=== PATIENT | female | born 1950 | race Caucasian/White ===

== ENCOUNTER 2023-07-16 11:21 | Day surgery (SDC) | payer MEDICARE, BC, SELFPAY ==
[2023-07-16 12:04] VITALS: BP 137/74; PULSE 72; RESP 16; TEMP 36.7; O2SAT 97
[2023-07-16] MEDS: Tropicam./Phenyleph. (1/2.5%) 5 ML BTL OS ×3 (12:13→12:28)
--- NOTE | 2023-07-16 12:14 | ANES.PREOP_ITS ---
General Info Date of Service Date Performed: 07/16/23 Height: 5 ft 3 in Weight: 65.317 kg Body Mass Index (BMI): 25.4 Surgical Procedure: Operation Date: 07/16/23 13:40 Proposed Procedure Side Surgeon p Cataract Extraction with IOL Implant Left Lazaro Scott MD Meds Allergies and Home Medications Allergies Allergy/AdvReac Type Severity Reaction Status Date / Time diphenhydramine Allergy Intermediate Other (See Unverified 07/16/23 12:01 Comment) latex Allergy Intermediate Skin Rash Unverified 07/16/23 12:01 Penicillins Allergy Intermediate Skin Rash Unverified 07/16/23 12:01 Home Medication Medication Instructions Recorded amlodipine 2.5 mg tablet 2.5 mg PO DAILY 07/15/23 clobetasol 0.05 % topical cream 1 applic topical HS 07/15/23 cyanocobalamin (vitamin B-12) 1,000 mcg PO DIRECTED 07/15/23 1,000 mcg tablet levothyroxine 137 mcg tablet 137 mcg PO DAILY 07/15/23 (Synthroid) lisinopril 5 mg tablet 5 mg PO DAILY 07/15/23 melatonin 5 mg tablet 5 mg PO HS PRN 07/15/23 mometasone 0.1 % topical cream 1 applic topical DIRECTED 07/15/23 Current Visit Medications: Current Medications Generic Name Dose Route Start Last Admin Trade Name Freq PRN Reason Stop Dose Admin Acetaminophen 1,000 mg 07/16/23 06:00 Acetaminophen 500 Mg Tab PO 08/15/23 05:59 Q4H PRN PRN Balanced Salt Solution 500 ml 07/16/23 06:00 Balanced Salt Soln.-Plus 500 Ml Bag OP 08/15/23 05:59 DIRECTED [facility] Miscellaneous Medication 0 ml 07/16/23 06:00 Prednisolone 1%, Moxifloxacin 0.5%, Nepafenac 0.1% 5ml Btl OS 08/15/23 05:59 DIRECTED [facility] Miscellaneous Medication 0 ml 07/16/23 06:00 Tropicam./Phenyleph. (1/2.5%) 5 Ml Btl OS 08/15/23 05:59 DIRECTED [facility] Tetracaine HCl 0 ml 07/16/23 08:00 Tetracaine 0.5% 5 Ml Btl OS 08/15/23 07:59 DIRECTED BENNIE [facility] Medical History Medical History Abnormal blood chemistry Allergy history, latex Arthropathy Atopic dermatitis BPPV (benign paroxysmal positional vertigo) Cervical disc disorder Per PCP H&P Noninflammatory cervical disorder Depressive disorder Disorder of vitamin B12 Hx of mammogram Hypertensive disorder Hypothyroidism Insomnia Leukoplakia of vulva Mixed hyperlipidemia Overweight Subjective tinnitus Vitamin B12 deficiency (non anemic) Surgical History Surgical History H/O thyroidectomy Hx of appendectomy Hx of colonoscopy Hx of exploratory laparotomy Hx of foot surgery Hx of tonsillectomy Tobacco Smoking/Tobacco Use Status: Former Tobacco Use Alcohol Alcohol Intake: never Substance Use Substance use type: does not use Vital Signs and Lab Results Vital Signs Most Recent Vital Signs in EMR: Most Recent Vital Signs Temp Pulse Resp BP Pulse Ox 36.7 C 72 16 137/74 97 07/16/23 12:04 07/16/23 12:04 07/16/23 12:04 07/16/23 12:04 07/16/23 12:04 Lab Results Blood Type / Crossmatch: No Data to Display Complete Blood Count: No Data to Display Complete Metabolic Panel: No Data to Display Liver Function Panel: No Data to Display Coagulation Panel: No Data to Display Cardiac Panel: No Data to Display Arterial Blood Gas: No Data to Display Venous Blood Gas: No Data to Display Pancreas Panel: No Data to Display Thyroid Panel: No Data to Display Infectious Disease: No Data to Display Blood Cultures: No Data to Display Toxicology Panel: No Data to Display Anesthesia Assessment and Plan Anesthesia History Personal History: No History of Anesthesia Complications Family History: No Family History of Anesthesia Complications Exercise Tolerance Exercise Tolerance: Metabolic Equivalents>4 Pertinent Negatives Pertinent Negatives: No Symptoms of GERD Cardiac & Pulmonary Exam Cardiac Exam: Normal S1/S2 Heart Sounds Pulmonary Exam: Clear Bilateral Breath Sounds Implantable Cardiac Device Does patient have a Pacemaker or an ICD?: No Airway Exam Known Difficult Airway: No Mallampati Class: 1 Mouth Opening: Normal (> 3cm) Thyromental Distance: Greater than 3 cm Neck Range of Motion: Full ROM Neck Circumference: Normal Teeth Condition: Normal Dentition ASA Classification ASA Score: ASA 2 Emergency Case?: No NPO Status NPO Status: NPO Clears >2 hours, Solids >8 hours Anesthesia Plan Resuscitation Status: Full Code Anesthesia Technique: MAC Anesthesia Airway Planned: Natural Airway Monitors Used: Standard Monitors
[2023-07-16 12:15] VITALS: BMI 25.4
[2023-07-16] MEDS: Balanced Salt Soln.-PLUS 500 ML BAG OP (13:34)
[2023-07-16] MEDS: Povidone-Iodine Ophth 30 ML BTL (13:36)
[2023-07-16] MEDS: Phenylephrine/Lidocaine (15/10) MG/ML 1 ML VIAL (13:36)
[2023-07-16] MEDS: Duovisc Viscoelastic System EACH 1 EACH (13:37)
[2023-07-16] MEDS: Lidocaine 1% Pres-Free 5 ML VIAL (13:37)
--- NOTE | 2023-07-16 13:53 | W.PM.DSUDISC ---
Date of service: 07/16/23 Time of Service: 13:53 Discharge Plan Disposition Patient Disposition: Home Discharge Details Attending Provider: Lazaro Scott Primary Care Provider: Michael Mckeon Home Meds and New Rx's Prescriptions: No Action levothyroxine [Synthroid] 137 mcg tablet 137 mcg PO DAILY clobetasol 0.05 % Cream 1 applic TOPICAL HS cyanocobalamin (vitamin B-12) 1,000 mcg Tablet 1,000 mcg PO DIRECTED amlodipine 2.5 mg tablet 2.5 mg PO DAILY lisinopril 5 mg tablet 5 mg PO DAILY mometasone 0.1 % Cream 1 applic TOPICAL DIRECTED melatonin 5 mg Tablet 5 mg PO HS PRN Discharge Instructions Stand Alone Forms: Post-op Topical CataractBlake (DSU) Discharge Orders Discharge Orders: Discharge Order (Routine); Ordered 07/16/23 Ordered By: Lazaro Scott DS: Diagnosis Discharge Diagnosis (1) Nuclear age-related cataract, right eye: Status: Resolved
--- NOTE | 2023-07-16 13:54 | ROE_ITS ---
Date of service: 07/16/23 Time of Service: 13:54 Operative Note Operative Note DATE OF PROCEDURE: 07/16/23 PRE-OP DIAGNOSIS: Nuclear cataract, right eye POST-OP DIAGNOSIS: same PROCEDURE: Cataract extraction using phacoemulsification with intraocular lens implant, right eye SURGEON: Lazaro Scott ANESTHESIA TYPE: Local By Surgeon and MAC Refer to Anesthesia Record ESTIMATED BLOOD LOSS: 0 PATHOLOGY: none sent COMPLICATIONS: None Patient was transported to: same day Patient's condition: stable Implants: Bennett Clareon [id number] Indications: Progressive decreased vision due to cataract, right eye Procedure Description: CATARACT SURGERY OPERATIVE REPORT PREOPERATIVE DIAGNOSIS: Nuclear cataract, right eye POSTOPERATIVE DIAGNOSIS: Same OPERATION: Cataract extraction using phacoemulsification with posterior chamber intraocular lens implant, right eye. IOL: IOL Glove Cleaner/Model: Bennett Clareon [id number] IOL Power: + 23.5 diopters IOL Serial Number: [id number] Optic Diameter: 6.0mm Haptic/Overall Diameter: 13.0mm PHACO INFO: BennettScheduling Employee Scheduling Software[employer]ion Vision System with OZil and [employer] Cumulative Dispersed Energy (CDE): 21.06 seconds SURGEON: Lazaro Scott MD, ELIA ANESTHESIA: Monitored Anesthesia Care (MAC), with local sub-tenon's anesthetic infiltration COMPLICATIONS: None SPECIMENS: None INDICATIONS FOR PROCEDURE: The patient is a 72-year-old lady with history of diminished visual acuity in her right eye secondary to the development of dense nuclear cataract. She is significantly symptomatic that she desires cataract surgery and attempt to improve and maximize her vision. See office notes for detailed information. PROCEDURE: The correct surgical eye was identified and marked as the right eye and the pupil was dilated in the preoperative area using mydriatics and cyclo plegics. The dilated pupil size was 7.0 mm. Oral sedation was administered in the form of an Imprimis MKO Melt (midazolam 3mg/ketamine 25mg/ondansetron 2mg). The patient was brought to the operating room where cardiopulmonary monitoring was instituted and surgical time-out was performed, confirming the correct operative eye and IOL power. Topical anesthesia was administered and ophthalmic povidone-iodine 5% was instilled into the conjunctival fornices. The kiara-ocular area was prepped with Betadine 10% solution and draped in the usual sterile fashion for intraocular surgery, including an aperture drape. A Tegaderm transparent film dressing was cut in half and used to cover the lashes and lid margins. Care was taken to sequester the lashes and lid margins under the Tegaderm dressing. A lid speculum was placed between the lids of the operative eye and the Serene-Roosevelt operating microscope was maneuvered into position. Nancy scissors were then used to make a conjunctival buttonhole approximately 6mm posterior to the limbus in the inferonasal quadrant. Blunt dissection was carried out to expose bare sclera, and a blunt-tipped sub-tenon?s anesthesia cannula was introduced and passed posteriorly along the globe where non- preserved plain lidocaine was injected into posterior sub-Tenon?s space. A sideport knife was used to make a paracentesis port. Intraocular phenylephrine/lidocaine was injected into the anterior chamber. The anterior chamber was then filled with viscoelastic. A keratome knife was used to construct a two--plane clear corneal tunnel extending 2.0mm into clear cornea. A flap was raised on the anterior capsule and capsulorhexis forceps were used to complete a continuous curvilinear capsulorhexis of 5.5 mm. Balanced salt solution was then used to perform cortical cleaving hydrodissection and nuclear hydrodelineation until the lens could be freely rotated within the capsular bag. The lens nucleus was then disassembled and removed within the capsular bag and iris plane using phacoemulsification. Residual cortical material was removed using the I/A handpiece. The posterior capsule was carefully polished to remove as much residual lens epithelial cells as safely possible. The capsular bag was then inflated and the anterior chamber deepened with cohesive viscoelastic. The lens implant described above was inserted into the capsular bag using the Bennett Autonome Injector. A Kuglen hook was used to dial the IOL into position. Residual viscoelastic was then removed first from posterior to the IOL, then from the anterior chamber using the I/A handpiece. The lens implant was noted to center nicely within the capsular bag. The incisions were stromally hydrated, and the anterior chamber was reformed using BSS. Then 0.5cc of moxifloxacin 1.0mg/ml were injected into the capsular bag and anterior chamber. The incisions were checked with a Weck spear and found to be secure. Several drops of ophthalmic povidone-iodine 5% were then applied to the eye followed by two drops of Imprimis combination prednisolone/moxifloxacin/nepafenac solution. The drapes were removed and a clear plastic protective eye shield was placed over the eye. The patient was then returned to Same Day Surgery in stable condition.
[2023-07-16 13:55] VITALS: BP 121/80; PULSE 72; RESP 16; TEMP 36.8; O2SAT 97
--- NOTE | 2023-07-16 13:59 | W.ANESPOSTOP ---
Postoperative Evaluation Date, Time and Location Date Performed: 07/16/23 Time Performed: 13:59 Patient Location: Day Surgery Unit Vital Signs Most Recent Imported Vital Signs: Most Recent Vital Signs Temp Pulse Resp BP Pulse Ox 36.7 C 72 16 137/74 97 07/16/23 12:04 07/16/23 12:04 07/16/23 12:04 07/16/23 12:04 07/16/23 12:04 Pain Score Most Recent Pain Score: Most Recent Pain Score Pain Level 0 07/16/23 12:04 Assessment Mental Status: Awake (Alert & Oriented to Patient Baseline) Airway and Respiratory Function: Patent airway with normal (patient baseline) respiratory exam Cardiovascular Function: Hemodynamically Stable Hydration Status: Adequately Hydrated Nausea & Vomiting: No Nausea or Vomiting Pain: Pt. Denies Any Pain Peripheral Nerve Block: Patient did not receive a nerve block
[2023-07-16 14:15] VITALS: BP 135/83; PULSE 80; RESP 16; TEMP 36.8; O2SAT 97
== END 2023-07-16 14:17 | disposition home or self-care (01) ==
LOC: SUR 11:22
PROVIDERS: PCP Family Medicine; Visit Provider Ophthalmology
PROC: (CPT 66984; principal; 2023-07-16 13:30)
DX: H25.11 Age-related nuclear cataract, right eye (principal)
CPT/HCPCS: 66984; V2632

== ENCOUNTER 2023-07-30 07:47 | Day surgery (SDC) | payer MEDICARE, BC, SELFPAY ==
--- NOTE | 2023-07-28 19:21 | W.PREOPHP ---
Assessment and Plan Assessment and plan (1) Nuclear age-related cataract, left eye: Status: Acute Assessment and plan: Assessment: Visually significant cataract left eye. Plan: Cataract extraction with lens implantation, left eye History of Present Illness History of Present Illness Chief Complaint: Progressive decreased vision, left eye Narrative: ` The patient is a 72-year-old lady with history of progressive decreased vision in both eyes at both distance and near. She avoids driving at night due to severe glare. On examination she was noted to have rather dense bilateral nuclear cataract. She underwent cataract surgery in the right eye on 07/16/2023 and now is doing well postoperatively. She now presents for cataract surgery in the left eye. Review of Systems All systems reviewed & are unremarkable except as noted in HPI and below PFSH All Active Problems Nuclear age-related cataract, left eye (Acute) Medical History Abnormal blood chemistry Allergy history, latex Arthropathy Atopic dermatitis BPPV (benign paroxysmal positional vertigo) Cervical disc disorder Per PCP H&P Noninflammatory cervical disorder Depressive disorder Disorder of vitamin B12 Hx of mammogram Hypertensive disorder Hypothyroidism Insomnia Leukoplakia of vulva Mixed hyperlipidemia Overweight Subjective tinnitus Vitamin B12 deficiency (non anemic) Surgical History H/O thyroidectomy Hx of appendectomy Hx of colonoscopy Hx of exploratory laparotomy Hx of foot surgery Hx of tonsillectomy Social History Smoking/Tobacco Use Status: Former Tobacco Use Quit Date: 11/15/67 Smoking risk assessment performed?: Yes Alcohol Intake: never Substance use type: does not use Housing: house Do you feel safe at home: Yes Do you feel safe in your relationship?: Yes Meds Allergies and Home Medications Allergies Allergy/AdvReac Type Severity Reaction Status Date / Time diphenhydramine Allergy Intermediate Other (See Unverified 07/30/23 08:20 Comment) latex Allergy Intermediate Skin Rash Unverified 07/30/23 08:20 Penicillins Allergy Intermediate Skin Rash Unverified 07/30/23 08:20 Home Medications Medication Instructions Recorded Confirmed Type amlodipine 2.5 mg tablet 2.5 mg PO DAILY 07/15/23 07/30/23 History clobetasol 0.05 % topical cream 1 applic topical HS 07/15/23 07/28/23 History cyanocobalamin (vitamin B-12) 1,000 mcg PO DIRECTED 07/15/23 07/28/23 History 1,000 mcg tablet levothyroxine 137 mcg tablet 137 mcg PO DAILY 07/15/23 07/30/23 History (Synthroid) lisinopril 5 mg tablet 5 mg PO DAILY 07/15/23 07/30/23 History melatonin 5 mg tablet 5 mg PO HS PRN 07/15/23 07/28/23 History mometasone 0.1 % topical cream 1 applic topical DIRECTED 07/15/23 07/28/23 History Exam Eyes Other: At time of examination reveals corrected visual acuity of 20/50 OD, 20/25 OS. Extract motility is normal. Intraocular pressure is 16 OD, 14 OS. Slit-lamp examination reveals a well-positioned PCIOL OD with clear posterior capsule. In the left eye there is a dense brunescent nuclear cataract. Funduscopic examination shows disc cupping of 0.3 OU with normal vessels, macula, peripheral retina and vitreous. Resp Auscultation: clear to auscultation bilaterally Cardio Rate: regular rate Rhythm: regular rhythm
--- NOTE | 2023-07-30 06:21 | W.ANESPRE ---
General Info Date of Service Date Performed: 07/30/23 Height: 5 ft 3 in Weight: 65.317 kg Body Mass Index (BMI): 25.4 Surgical Procedure: Operation Date: 07/30/23 09:55 Proposed Procedure Side Surgeon p Cataract Extraction with IOL Implant Left Lazaro Scott MD Meds Allergies and Home Medications Allergies Allergy/AdvReac Type Severity Reaction Status Date / Time diphenhydramine Allergy Intermediate Other (See Unverified 07/30/23 08:20 Comment) latex Allergy Intermediate Skin Rash Unverified 07/30/23 08:20 Penicillins Allergy Intermediate Skin Rash Unverified 07/30/23 08:20 Home Medication Medication Instructions Recorded amlodipine 2.5 mg tablet 2.5 mg PO DAILY 07/15/23 clobetasol 0.05 % topical cream 1 applic topical HS 07/15/23 cyanocobalamin (vitamin B-12) 1,000 mcg PO DIRECTED 07/15/23 1,000 mcg tablet levothyroxine 137 mcg tablet 137 mcg PO DAILY 07/15/23 (Synthroid) lisinopril 5 mg tablet 5 mg PO DAILY 07/15/23 melatonin 5 mg tablet 5 mg PO HS PRN 07/15/23 mometasone 0.1 % topical cream 1 applic topical DIRECTED 07/15/23 Current Visit Medications: Current Medications Generic Name Dose Route Start Last Admin Trade Name Freq PRN Reason Stop Dose Admin Acetaminophen 1,000 mg 07/30/23 06:00 Acetaminophen 500 Mg Tab PO 08/29/23 05:59 Q4H PRN PRN Balanced Salt Solution 500 ml 07/30/23 06:00 Balanced Salt Soln.-Plus 500 Ml Bag OP 08/29/23 05:59 DIRECTED [facility] Miscellaneous Medication 0 ml 07/30/23 06:00 Prednisolone 1%, Moxifloxacin 0.5%, Nepafenac 0.1% 5ml Btl OS 08/29/23 05:59 DIRECTED [facility] Miscellaneous Medication 0 ml 07/30/23 06:00 Tropicam./Phenyleph. (1/2.5%) 5 Ml Btl OS 08/29/23 05:59 DIRECTED B[facility]IE Tetracaine HCl 0 ml 07/30/23 06:00 Tetracaine 0.5% 4 Ml Btl OS 08/29/23 05:59 DIRECTED BENNIE PFSH Active Problems Active Problems: Problem Status Onset Code Nuclear age-related cataract, left eye H25.12 Nuclear age-related cataract, right eye H25.11 Medical History Medical History Abnormal blood chemistry Allergy history, latex Arthropathy Atopic dermatitis BPPV (benign paroxysmal positional vertigo) Cervical disc disorder Per PCP H&P Noninflammatory cervical disorder Depressive disorder Disorder of vitamin B12 Hx of mammogram Hypertensive disorder Hypothyroidism Insomnia Leukoplakia of vulva Mixed hyperlipidemia Overweight Subjective tinnitus Vitamin B12 deficiency (non anemic) Surgical History Surgical History H/O thyroidectomy Hx of appendectomy Hx of colonoscopy Hx of exploratory laparotomy Hx of foot surgery Hx of tonsillectomy Tobacco Smoking/Tobacco Use Status: Former Tobacco Use Alcohol Alcohol Intake: never Substance Use Substance use type: does not use Vital Signs and Lab Results Vital Signs Most Recent Vital Signs in EMR: Temp Pulse Resp BP Pulse Ox 36.6 C 70 16 138/78 97 07/30/23 08:05 07/30/23 08:05 07/30/23 08:05 07/30/23 08:05 07/30/23 08:05 Lab Results Blood Type / Crossmatch: No Data to Display Complete Blood Count: No Data to Display Complete Metabolic Panel: No Data to Display Liver Function Panel: No Data to Display Coagulation Panel: No Data to Display Cardiac Panel: No Data to Display Arterial Blood Gas: No Data to Display Venous Blood Gas: No Data to Display Pancreas Panel: No Data to Display Thyroid Panel: No Data to Display Infectious Disease: No Data to Display Blood Cultures: No Data to Display Toxicology Panel: No Data to Display Anesthesia Assessment and Plan Anesthesia History Personal History: No History of Anesthesia Complications Family History: No Family History of Anesthesia Complications Exercise Tolerance Exercise Tolerance: Metabolic Equivalents>4 Cardiac & Pulmonary Exam Cardiac Exam: Normal S1/S2 Heart Sounds Pulmonary Exam: Clear Bilateral Breath Sounds Implantable Cardiac Device Does patient have a Pacemaker or an ICD?: No Airway Exam Known Difficult Airway: No Mallampati Class: 1 Mouth Opening: Normal (> 3cm) Thyromental Distance: Greater than 3 cm Neck Range of Motion: Full ROM Neck Circumference: Normal Teeth Condition: Normal Dentition ASA Classification ASA Score: ASA 2 Emergency Case?: No NPO Status NPO Status: NPO Clears >2 hours, Solids >8 hours Anesthesia Plan Resuscitation Status: Full Code Anesthesia Technique: MAC Anesthesia Airway Planned: Natural Airway Monitors Used: Standard Monitors Preoperative Comments:: 72 yo female for repeat cataract. Did have MKO for previous, would like one again. no changes in health history.
[2023-07-30 08:05] VITALS: BP 138/78; PULSE 70; RESP 16; TEMP 36.6; O2SAT 97
[2023-07-30] MEDS: Tropicam./Phenyleph. (1/2.5%) 5 ML BTL OS ×3 (08:27→08:49)
[2023-07-30 08:30] VITALS: BMI 25.4
[2023-07-30] MEDS: Tetracaine 0.5% 4 ML BTL OS (09:25)
[2023-07-30] MEDS: Povidone-Iodine Ophth 30 ML BTL (09:26)
[2023-07-30] MEDS: Balanced Salt Soln.-PLUS 500 ML BAG OP (09:29)
[2023-07-30] MEDS: Phenylephrine/Lidocaine (15/10) MG/ML 1 ML VIAL (09:30)
[2023-07-30] MEDS: Duovisc Viscoelastic System EACH 1 EACH (09:30)
[2023-07-30] MEDS: Lidocaine 1% Pres-Free 5 ML VIAL (09:30)
[2023-07-30 09:51] VITALS: BP 120/74; PULSE 68; RESP 18; TEMP 36.8; O2SAT 97
--- NOTE | 2023-07-30 09:51 | W.PM.DSUDISC ---
Date of service: 07/30/23 Time of Service: 09:51 Discharge Plan Disposition Patient Disposition: Home Discharge Details Attending Provider: Lazaro Scott Primary Care Provider: Michael Mckeon Home Meds and New Rx's Prescriptions: No Action levothyroxine [Synthroid] 137 mcg tablet 137 mcg PO DAILY clobetasol 0.05 % Cream 1 applic TOPICAL HS cyanocobalamin (vitamin B-12) 1,000 mcg Tablet 1,000 mcg PO DIRECTED amlodipine 2.5 mg tablet 2.5 mg PO DAILY lisinopril 5 mg tablet 5 mg PO DAILY mometasone 0.1 % Cream 1 applic TOPICAL DIRECTED melatonin 5 mg Tablet 5 mg PO HS PRN Discharge Instructions Stand Alone Forms: Post-op Topical CataractBlake (DSU) Discharge Orders Discharge Orders: Discharge Order (Routine); Ordered 07/30/23 Ordered By: Lazaro Scott DS: Diagnosis Discharge Diagnosis (1) Nuclear age-related cataract, left eye: Status: Resolved
--- NOTE | 2023-07-30 09:52 | ROE_ITS ---
Date of service: 07/30/23 Time of Service: 09:52 Operative Note Operative Note DATE OF PROCEDURE: 07/30/23 PRE-OP DIAGNOSIS: Nuclear cataract, left eye POST-OP DIAGNOSIS: same PROCEDURE: Cataract extraction using phacoemulsification with intraocular lens implant, left eye SURGEON: Lazaro Scott ANESTHESIA TYPE: Local By Surgeon and MAC Refer to Anesthesia Record PATHOLOGY: none sent COMPLICATIONS: None Patient was transported to: same day Patient's condition: stable Implants: Bennett Clareon [id number] Indications: Progressive decreased vision due to cataract, left eye Procedure Description: CATARACT SURGERY OPERATIVE REPORT PREOPERATIVE DIAGNOSIS: Nuclear cataract, left eye POSTOPERATIVE DIAGNOSIS: Same OPERATION: Cataract extraction using phacoemulsification with posterior chamber intraocular lens implant, left eye. IOL: IOL Work Study Student/Model: Bennett Clareon [id number] IOL Power: + 23.5 diopters IOL Serial Number: [id number] Optic Diameter: 6.0mm Haptic/Overall Diameter: 13.0mm PHACO INFO: Bennett Iscopia Softwareurion Vision System with OZil and Active Fluidics Cumulative Dispersed Energy (CDE): 20.96 seconds SURGEON: Lazaro Scott MD, ELIA ANESTHESIA: Monitored Anesthesia Care (MAC), with local sub-tenon's anesthetic infiltration COMPLICATIONS: None SPECIMENS: None INDICATIONS FOR PROCEDURE: The patient is a 72-year-old lady with history of diminished visual acuity in her left eye secondary to the development of dense nuclear cataract. She is 48 undergone cataract surgery in the right eye and is doing well postoperatively. She now presents for cataract surgery in the left eye. See office notes for detailed information. PROCEDURE: The correct surgical eye was identified and marked as the left eye and the pupil was dilated in the preoperative area using mydriatics and cycloplegics. The dilated pupil size was 8.0 mm. Oral sedation was administered in the form of an Imprimis MKO Melt (midazolam 3mg/ketamine 25mg/ondansetron 2mg). The patient was brought to the operating room where cardiopulmonary monitoring was instituted and surgical time-out was performed, confirming the correct operative eye and IOL power. Topical anesthesia was administered and ophthalmic povidone-iodine 5% was instilled into the conjunctival fornices. The kiara-ocular area was prepped with Betadine 10% solution and draped in the usual sterile fashion for intraocular surgery, including an aperture drape. A Tegaderm transparent film dressing was cut in half and used to cover the lashes and lid margins. Care was taken to sequester the lashes and lid margins under the Tegaderm dressing. A lid spe culum was placed between the lids of the operative eye and the Bennett LuxOR Revalia operating microscope was maneuvered into position. Nancy scissors were then used to make a conjunctival buttonhole approximately 6mm posterior to the limbus in the inferonasal quadrant. Blunt dissection was carried out to expose bare sclera, and a blunt-tipped sub-tenon?s anesthesia cannula was introduced and passed posteriorly along the globe where non- preserved plain lidocaine was injected into posterior sub-Tenon?s space. A sideport knife was used to make a paracentesis port. Intraocular phenylephrine/lidocaine was injected into the anterior chamber. The anterior chamber was then filled with viscoelastic. A keratome knife was used construct a two-plane clear corneal tunnel extending 2.0mm into clear cornea. A flap was raised on the anterior capsule and capsulorhexis forceps were used to complete a continuous curvilinear capsulorhexis of 5.8 mm. Balanced salt solution was then used to perform cortical cleaving hydrodissection and nuclear hydrodelineation until the lens could be freely rotated within the capsular bag. The lens nucleus was then disassembled and removed within the capsular bag and iris plane using phacoemulsification. Residual cortical material was removed using the irrigation/aspiration handpiece. The posterior capsule was carefully polished to remove as much residu al lens epithelial cells as safely possible. The capsular bag was then inflated and the anterior chamber deepened with viscoelastic. The lens implant described above was inserted into the capsular bag using the Bennett Autonome Injector. A Kuglen hook was used to dial the IOL into position. Residual viscoelastic was then removed first from posterior to the IOL, then from the anterior chamber using the I/A handpiece. The lens implant was noted to center nicely within the capsular bag. The incisions were stromally hydrated, and the anterior chamber was reformed using BSS. Then 0.5cc of moxifloxacin 1.0mg/ml were injected into the capsular bag and anterior chamber. The incisions were checked with a Weck spear and found to be secure. Several drops of ophthalmic povidone-iodine 5% were then applied to the eye followed by two drops of Imprimis combination prednisolone/moxifloxacin/nepafenac solution. The drapes were removed and a clear plastic protective eye shield was placed over the eye. The patient was then returned to [facility] Day Surgery in stable condition.
[2023-07-30 10:06] VITALS: BP 120/84; PULSE 65; RESP 18; TEMP 36.8; O2SAT 98
--- NOTE | 2023-07-30 10:08 | W.ANESPOSTOP ---
Postoperative Evaluation Date, Time and Location Date Performed: 07/30/23 Time Performed: 09:51 Patient Location: Day Surgery Unit Vital Signs Most Recent Imported Vital Signs: Most Recent Vital Signs Temp Pulse Resp BP Pulse Ox 36.8 C 68 18 120/74 97 07/30/23 09:51 07/30/23 09:51 07/30/23 09:51 07/30/23 09:51 07/30/23 09:51 Pain Score Most Recent Pain Score: Most Recent Pain Score Pain Level 0 07/30/23 09:51 Assessment Mental Status: Awake (Alert & Oriented to Patient Baseline) Airway and Respiratory Function: Patent airway with normal (patient baseline) respiratory exam Cardiovascular Function: Hemodynamically Stable Hydration Status: Adequately Hydrated Nausea & Vomiting: No Nausea or Vomiting Pain: Pt. Denies Any Pain Peripheral Nerve Block: Patient did not receive a nerve block
== END 2023-07-30 10:21 | disposition home or self-care (01) ==
LOC: SUR 07:47
PROVIDERS: PCP Family Medicine; Visit Provider Ophthalmology
PROC: (CPT 66984; principal; 2023-07-30 09:45)
DX: H25.12 Age-related nuclear cataract, left eye (principal); I10 Essential (primary) hypertension; Z98.42 Cataract extraction status, left eye
CPT/HCPCS: 66984; V2632